=== PATIENT | female | born 1970 | race American Indian/Alaskan Native ===

== ENCOUNTER 2017-07-27 21:20 | Emergency (ER) | payer OTHER ==
[~2017-07-27 21:20] MED LIST: ADRENALIN ONE; D50W (25GM) Syringe IV ONE; SODIUM BICARBONATE IV ONE
--- NOTE | 2017-07-27 22:00 | Emergency Department Report ---
ED CPR HPI - General Stated Complaint: CARDIAC ARREST Time Seen by Provider: 07/27/17 21:20 Source: EMS Mode of arrival: Stretcher Limitations: Other (cardiac arrest) - History of Present Illness Initial Comments: Is a 47-year-old female with past medical history of hypertension presented to the emergency room via EMS for cardiac arrest. Patient's last known well time one hour prior to arrival. CPR performed for approximately 20 minutes by EMS. Epi and D50 given by EMS. Per EMS, on monitor asystole. Also, EMS to have a low sugar. Care assumed at 2115. See code note. MD Complaint: found unresponsive Place: home Bystander CPR Performed: No AED Applied by Bystander/Fork Lift Mechanic: No Initial Findings in the Field: unresponsive, no pulse Treatments Prior to Arrival: intubation, BMV, epinephrine mgs #, glucose ED Review of Systems ROS: Stated complaint: CARDIAC ARREST Other details as noted in HPI Comment: Unobtainable due to pts medical conditions ED Past Medical Hx - Past Medical History Previous Medical History?: Yes Hx Hypertension: Yes - Surgical History Past Surgical History?: No - Family History Family history: no significant - Social History Smoking Status: Unknown if ever smoked ED Physical Exam - General General appearance: obese - Head Head exam: Present: atraumatic, normocephalic - Eye Eye exam: Present: other (fixed and dilated) - Neck Neck exam: Present: normal inspection - Respiratory Respiratory exam: Present: other (ET tube in place. placement verified. Good breath sounds in bilateral lung ruano) - Cardiovascular Cardiovascular Exam: Present: other (no heart sounds noted. No pulse noted) - Skin Skin exam: Present: warm, dry ED Course - Reevaluation(s) Reevaluation #1: 07/27/172 patient pronounced. Code called. Pupils fixed and dilated. No cardiac activity noted on ultrasound. No heart tones noted during auscultation. See nurse's code sheet Reevaluation #2: 07/27/17 2200. Family met with. Support given to family Critical Care Time: Yes Critical care attestation.: If time is entered above; I have spent that time in minutes in the direct care of this critically ill patient, excluding procedure time. Critical Care Time: 30 minutes spent with patient for critical care time ED Disposition Clinical Impression: Cardiac arrest Disposition: DC-20 Is pt being admited?: No Does the pt Need Aspirin: No Time of Disposition: 21:32
== END 2017-07-28 01:00 ==
LOC: ED 21:20
DX: I46.9 Cardiac arrest, cause unspecified (principal); I10 Essential (primary) hypertension
CPT/HCPCS: 82962; 99285; J0171